=== PATIENT | male | born 1965 | race Caucasian/White ===

== ENCOUNTER 2017-02-20 06:03 | Day surgery (SDC) | payer BC ==
[2017-02-12 12:17] VITALS: BMI 29.5
[2017-02-20] MEDS ORDERED: KETOROLAC TROMETHAMINE 60 MG/2 ML VIAL ONE (07:16)
[2017-02-20] MEDS ORDERED: BUPIVACAINE HCL/PF 2.5 MG/ML - 30 ML VIAL IJ ONE (07:16)
[2017-02-20] MEDS ORDERED: morphine CARPU-JECT 10 MG/1 ML DISP.SYRIN ONE (07:16)
[2017-02-20] MEDS ORDERED: EPINEPHrine 1:1,000 1 MG/1 ML - 30ML VIAL (INJECTION) ONE (07:17)
[2017-02-20] MEDS ORDERED: MIDAZOLAM HCL 2 MG/2 ML SINGLE DOSE VIAL ONE (07:32)
[2017-02-20] MEDS ORDERED: PROPOFOL 20 ML ONE ×2 (07:52)
[2017-02-20] MEDS ORDERED: SUCCINYLCHOLINE CHLORIDE 200 MG/10 ML VIAL ONE (07:52)
[2017-02-20] MEDS ORDERED: ceFAZolin SODIUM 1 GM VIAL ONE (08:42)
[2017-02-20] MEDS ORDERED: KETOROLAC TROMETHAMINE 30 MG/1 ML VIAL ONE ×2 (09:05→09:42)
[2017-02-20] MEDS ORDERED: LABETALOL HCL 5 MG/1 ML (100MG/20 ML VIAL) ONE (10:04)
[2017-02-20] MEDS ORDERED: LABETALOL HCL 5 MG/1 ML (100MG/20 ML VIAL) IVPUSH ONE (10:10)
[2017-02-20] MEDS ORDERED: oxyCODONE HCL 5 MG TABLET PO PRN (10:13)
[2017-02-20] MEDS ORDERED: ONDANSETRON 4 MG/2 ML VIAL IVPUSH PRN (10:13)
[2017-02-20] MEDS ORDERED: LACTATED RINGERS SOLUTION 1,000 ML IV SCH (10:15)
[2017-02-20 11:07] VITALS: TEMP 97.6
[2017-02-20 11:52] VITALS: BP 132/90; PULSE 54
--- NOTE | 2017-02-20 15:16 | OP ---
DATE OF OPERATION: 02/20/2017 ANESTHESIOLOGIST: TYPE OF ANESTHESIA: LMA general. PREOPERATIVE DIAGNOSES: Medial meniscus tear. Early medial compartment osteoarthritis. POSTOPERATIVE DIAGNOSES: Complex medial meniscus tear with both vertical and horizontal components. Outerbridge classification grade 3 and several small areas of grade 4 of the medial femoral condyle. 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 PROCEDURES: Right knee arthroscopy, partial medial meniscectomy. TOURNIQUET TIME: Twenty minutes. ANTIBIOTICS: Kefzol was given preoperatively for prophylaxis against infection. Marcaine 0.25% of 10 mL was instilled into the skin prior to skin incision. At the conclusion of the procedure, 10 mg of morphine and 30 mg of Toradol instilled in the knee for additional analgesia. FLUID GIVEN: Crystalloid. COMPLICATIONS: There were no complications. BLOOD LOSS: Minimal. INDICATIONS: The patient is a 51-year-old male with complaints of sharp, stabbing episodes of knee pain. At times, worse at night. When he turns over in bed, he is getting sharp pain that occasionally woke him up from sleep. At times, with deep knee bends or pivoting, he experienced pain. He had sent for an MRI which was reviewed, showing a small effusion, a cystic-appearing structure multi-loculated posterior knee most likely representing a ganglion cyst. We did discuss that the radiologist had suggested an MRI with gadolinium to exclude tumor. The patient said he has had the symptoms for years and he did not want to pursue that. I told him it is unlikely and I think the radiologist's reading is most likely representing a cyst associated with a meniscus tear is more than likely with that. I also explained that the ganglion cyst is also associated with the arthritis which was noted on the weight-bearing articular cartilage on the medial femoral condyle. We discussed treatment options, including weight loss, physical therapy, injection therapy versus surgery. After a thorough discussion with the patient, he wished to proceed with knee arthroscopy and a partial meniscectomy. The risks of the surgery were explained to include, but not be limited to, infection; stiffness; continued pain; chance that should his symptoms be coming from the arthritis in his knee, that symptoms are not going to improve; in fact, a chance he may worsen or continue to worsen over time; chance he may need additional surgery including partial or total knee replacement surgery in the future; chance he could have a permanent neurologic injury, leaving a permanent pain leg. The patient understands this. He understands that this surgery is not going to address any symptoms coming from arthritis. He does understand that the mass that was seen, although likely nothing, that it could very possibly be something more than a cyst. We discussed the treatment options with that. Should he have continued pain, we are going to repeat the MRI with gadolinium to exclude that, as well. We discussed all of his options and the risks of surgery, including the need for additional surgery in the future. The patient understands this. He has identified his right knee as the operative site which was confirmed with the operating room staff and he agrees to proceed with the planned procedure. The procedure as follows. PROCEDURE: After the administration of LMA general anesthetic by the anesthesiologist, a tourniquet was placed high on the right leg, and the right leg was then prepped and draped in the usual sterile manner. The tourniquet was inflated. The aforementioned local was instilled in the skin. A diagnostic arthroscopy was then performed through anteromedial and anterolateral portals. Upon entering the knee, the patellofemoral compartment revealed chondromalacia of the undersurface of the patella as previously documented. Upon entering the medial compartment, he had Outerbridge classification grade 3 and 4 chondromalacia of the central weight-bearing portion extending into the posterior portion of the medial femoral condyle with lesser changes on the tibial plateau. There was a complex tear with radial, horizontal and vertical components. The tear extended all the way out to the periphery at the junction between the posterior horn and body of the medial meniscus. A partial medial meniscectomy was then performed, stabilizing the remaining medial meniscus down to smooth, stable contour. A chondroplasty for the loose articular-chondral flaps of the medial femoral condyle was performed. All arthroscopic fluid and debris was then removed using an arthroscopic shaver as the suction. The intercondylar notch was then visualized showing an intact ACL and PCL. The lateral compartment revealed relatively pristine cartilaginous surfaces of the lateral femoral condyle, lateral tibial plateaus, as well as lateral meniscus. All arthroscopic fluid was again removed, systematically going through the knee, and all arthroscopic debris was also removed using arthroscopic shaver as the suction. After evacuating the knee of arthroscopic fluid and debris, the wound was closed with 3-0 nylon sutures. The aforementioned local with Toradol and morphine was instilled in the knee. The wounds were then dressed with Adaptic, 4 x 4 gauze, ABD pad held in place with a loosely applied Amaury wrap. The patient was awoken, and transported to the recovery room in stable condition, having tolerated the procedure without any incident. Postoperatively, he is going to start physical therapy in the few days after the surgery. He is going to minimize how much walking and standing he does for the first 10 days. He was told he can take off his dressing and shower in 3 days, but not to submerge his knee in water such as a pool, an ocean, a mart or a bathtub. He was explained the use of his medications, as well as the use of ice to help with pain and swelling. KAMRAN ESQUIVEL M.D. [id number]
== END 2017-02-20 11:55 | disposition home or self-care (01) ==
LOC: FASU 06:03
PROVIDERS: ATTEND Orthopaedic Surgery
PROC: 0SBC4ZZ Excision of Right Knee Joint, Percutaneous Endoscopic Approach (ICD-10-PCS; principal; 2017-02-20 08:54)
DX: S83.241A Other tear of medial meniscus, current injury, right knee, initial encounter (principal); X58.XXXA Exposure to other specified factors, initial encounter; Y93.9 Activity, unspecified; Y92.9 Unspecified place or not applicable; M17.11 Unilateral primary osteoarthritis, right knee; M22.41 Chondromalacia patellae, right knee
CPT/HCPCS: 94760